=== PATIENT | female | born 1955 ===

== ENCOUNTER 2022-10-11 17:16 | Emergency (ER) | payer OTHER ==
[~2022-10-11] VITALS: Ht 162.6 cm; Wt 81.6 kg
== END 2022-10-11 22:09 | disposition home or self-care (01) ==
LOC: ER 17:16
DX: S80.02XA Contusion of left knee, initial encounter (principal); W19.XXXA Unspecified fall, initial encounter; Y93.89 Activity, other specified; Y92.59 Other trade areas as the place of occurrence of the external cause; Y99.9 Unspecified external cause status; Z88.6 Allergy status to analgesic agent; Z88.8 Allergy status to other drugs, medicaments and biological substances